=== PATIENT | female | born 1990 | race Caucasian/White ===

== ENCOUNTER → 2023-11-23 | Outpatient (CLI) | payer OTHER ==
--- NOTE | 2023-12-22 10:06 | XR ---
Patient: Larissa Henderson Ordering Physician: Unknown, Unknown ID: [id number] Phone, Pager: Phone: N/ A Pager: N/A : N/A Age/Gender: N/A, O Primary Location: N/A Procedure: XR Forearm [address] [facility] Date: 11/23/2023 12:46:00 PM EXAMINATION TYPE: XR forearm RT DATE OF EXAM: 11/23/2023 COMPARISON: No comparison available on downtime PACS. HISTORY: Pain and bruising after injury TECHNIQUE: 2 view right forearm FINDINGS: Radius aligns normally with the humerus. Anterior fat pad is normal. No elevation of benefits director ior fat pad is evident. Distal forearm wrist joint appears preserved. No acute fractures or dislocati ons. Soft tissues appear normal. Follow up exams can be performed 7-10 days of acute trauma for continued pain. IMPRESSION: 1. No acute osseous abnormality right forearm
== END | disposition home or self-care (01) ==
LOC: RADXRMAIN 12:14
PROVIDERS: ATTEND Emergency Medicine
DX: S50.11XA Contusion of right forearm, initial encounter (principal)